=== PATIENT | male | born 1950 | race Caucasian/White ===

== ENCOUNTER 2022-02-20 08:31 | Outpatient (CLI) | payer MEDICARE ==
[2022-02-20] MEDS ORDERED: Iopamidol 300 61% 100 ML VIAL FS ONE (15:22)
== END 2022-02-20 08:32 | disposition home or self-care (01) ==
LOC: CSHCT 08:31
PROVIDERS: ATTEND Family Medicine
DX: R59.1 Generalized enlarged lymph nodes (principal); E04.2 Nontoxic multinodular goiter; R59.0 Localized enlarged lymph nodes
CPT/HCPCS: 70492; 82565; Q9967

== ENCOUNTER 2022-04-25 11:01 | Outpatient (CLI) | payer MEDICARE ==
[2022-04-25 12:32] LABS: Hemoglobin 14.9 g/dL (13.5-17.5)
[2022-04-25 12:51] LABS: Anion Gap 12 mmol/L (10-20); BUN (Urea Nitrogen) 14 mg/dL (8.4-25.7); Calc. Creatinine Clearance 0 mL/min (70-130); Calcium 9.1 mg/dL (7.8-10.44); Carbon Dioxide 27 mmol/L (23-31); Chloride 104 mmol/L (98-107); Estimated GFR 92; Glucose 96 mg/dL (83-110); Sodium 139 mmol/L (136-145)
== END 2022-04-25 11:02 | disposition home or self-care (01) ==
LOC: CSHLAB 11:01
PROVIDERS: ATTEND Otolaryngology Otolaryngic Allergy
DX: Z01.818 Encounter for other preprocedural examination (principal); Z20.822 Contact with and (suspected) exposure to COVID-19
CPT/HCPCS: 80048; 85014; 85018; 87811; 93005; 93010